=== PATIENT | female | born 1965 ===

== ENCOUNTER 2020-11-01 12:19 | Day surgery (SDC) | payer OTHER ==
[~2020-11-01 12:19] MED LIST: BENICAR20 MG PO; TOPROL XL100 M1 PO
== END 2020-11-01 17:45 | disposition home or self-care (01) ==
LOC: CIR.AMB 12:19
PROVIDERS: ATTEND Orthopaedic Surgery
DX: M77.11 Lateral epicondylitis, right elbow (principal); Z20.822 Contact with and (suspected) exposure to COVID-19